=== PATIENT | male | born 1955 | race Caucasian/White ===

== ENCOUNTER 2018-01-19 12:44 | Inpatient (IN) | payer SELFPAY ==
[2018-01-19] MEDS ORDERED: DILTIAZEM HCL 5 MG/ML VIAL IV ONE ×3 (12:50→13:00)
[2018-01-19] MEDS ORDERED: DILTIAZEM HCL 125 MG in DEXTROSE 5 % IN WATER 100 ML IV PRN ×2 (13:00)
--- NOTE | 2018-01-19 13:05 | ERNOTE ---
Dyspnea - General Presenting Symptoms: shortness of breath, difficulty of breathing Time Seen by Provider: 01/19/18 12:46 Source: patient Exam Limitations: no limitations - Immun/Allergies/Home Medications Immunizations: IMMUNIZATION HX Immunizations Up to Date Yes History of Influenza Vaccine No Hx Pneumococcal Vaccination No Allergies/Adverse Reactions: Allergies No Known Allergies Allergy (Verified 01/19/18 12:57) Home Medications: HOME MEDICATIONS NK [No Home Medication] 09/11/16 [Last Taken Unknown] - History of Present Illness Narrative: Patient stated that starting last night he got profoundly short of breath even having difficulty walking across a room because of difficulty breathing. He rates it moderate to severe and the only thing that seems to help is lying very still. Severity: moderate, severe Treatment VENEREAL DISEASE CONTROL HEAD: none Initiating event: Reports: none Frequency of episodes: Reports: no prior episodes Modifying Factors - (Improves): Reports: nothing Modifying Factors (Worsens): Reports: activity Associated Symptoms-Dyspnea: Reports: denies symptoms Review of Systems - Review of Systems EYE: Present: no symptoms reported ENT: Present: no symptoms reported Respiratory: Present: See HPI Cardiology: Present: palpitations Gastrointestinal/Abdominal: Present: no symptoms reported Genitourinary: Present: no symptoms reported Musculoskeletal: Present: no symptoms reported Skin: Present: no symptoms reported Neurological: Present: no symptoms reported Endocrine: Present: no symptoms reported Hematologic/Lymphatic: Present: no symptoms reported Psych: Present: no symptoms reported - Patient's Past Medical History Patient History - Medical: No pertinent hx Patient History - Cardiac/Respiratory: No pertinent hx Patient History - Cancer: No Hx of Cancer Patient History - Surgical Procedures: No surgical history Patient History - Other: Other - Social History Living Situations: home Psych History: No pertinent hx Smoking Status: Former smoker - he quit one week ago Smoking Stop Date: 01/14/18 Alcohol Use: none Drug Use: none - Immunizations Immunizations Up to Date: Yes Hx Pneumococcal Vaccination: No History of Influenza Vaccine: No Physical Exam - Physical Exam General Appearance: Present: wd/wn, alert, moderate distress Head Exam: Present: normal inspection, no evidence of injury Eye Exam: Normal inspection: bilateral, PERRL: bilateral Ears, Nose, Throat: Present: normal ENT inspection, H, normal pharynx Neck: Present: normal inspection, nontender Respiratory: Present: no respiratory distress, no accessory muscle use, chest nontender, wheezing Cardiovascular/Chest: Present: no murmur, normal peripheral pulses, tachycardia , irregularly irregular Gastrointestinal/Abdominal: Present: normal bowel sounds, nontender, nondistended, soft, no organomegaly Rectal Exam: Present: deferred Back Exam: Present: normal inspection, normal range of motion Extremity Exam: Present: normal inspection, non-tender, no edema, normal range of motion Neurological Exam: Present: alert, oriented, normal mood/affect Skin Exam: Present: normal color, warm/dry Lymphatic Exam: Present: no adenopathy ED Progress - Results and Orders Patient's Lab Results:: I have reviewed the patient's lab results. - Vital Signs Patient's Vital Signs:: I have reviewed the patient's vital signs. Vital Signs: Vital Signs 01/19/18 12:50 Temperature 36.8 C Pulse Rate 156 H Respiratory 22 H Rate Blood Pressure 119/90 O2 Sat by Pulse 96 Oximetry - EKG EKG: atrial fibrillation - with RVR EKG read: Interp. by me - X-Ray X-Ray #1 X-Ray: chest Interpretation: Reviewed by me - Progress/Reassessment Chief Complaint: Dyspnea Plan - Plan Plan: Patient responded reasonably wall with both a Cardizem drip now running at 7.5 mg and I have started him on 120 mg of Cardizem CD. He was given 10 mg of Coumadin as well, however his baseline INR is 1.33. Patient is fairly adamant about needing to go home tomorrow which is the reason for starting him on Cardizem CD here in the emergency department and they can hopefully wean him off the Cardizem drip in the ICU. Departure Clinical Impression: Atrial fibrillation with RVR - Departure Disposition: Still a patient Condition: Fair Critical Care Note - Critical Care Note Total Time (mins): 35 Comments: Patient required both Cardizem IV as well as a Cardizem drip to control the atrial fibrillation with a rapid ventricular response. Patient was started on 120 mg of Cardizem CD as well and he was given 10 mg of Coumadin by mouth. Patient will get an echocardiogram was here in the hospital and he'll be under the care of Dr. Parikh.
[2018-01-19 13:18] LABS: Hematocrit 29.9 % (42.0-52.0); Hemoglobin 10.2 gm/dL (13.5-18.0); Mean Cell Volume 97.1 fl (78-100); Mean Corpuscular Hemoglobin 33.1 pg (27-31); Mean Corpuscular Hgb Conc 34.1 g/dl (32-36); Mean Platelet Volume 12.8 fl (6.0-9.5); Neutrophil # 3.1 K/mm3 (1.3-6.0); Neutrophil % 65.2 % (42-75.0); Platelet Count 66 K/mm3 (150-450); Red Blood Count 3.08 M/mm3 (4.7-6.0); White Blood Count 4.8 K/mm3 (4.0-10.5)
[2018-01-19 13:26] LABS: Prothrombin Time (Patient) 13.3 Seconds (9.0-11.0)
[2018-01-19 13:29] LABS: INR 1.33 INR (0.90-1.10); Partial Thrombolplastin Time 25.8 Seconds (24-32)
[2018-01-19 13:31] LABS: Albumin * 3.3 gm/dl (3.4-5.0); Anion Gap 13.8 mmol/L (6.8-13.8); Bilirubin, Total 0.8 mg/dL (0.0-1.1); Ca. Corrected For Albumin 9.1 mg/dL (8.4-10.2); Calcium * 8.9 mg/dL (7.9-10.9); Carbon Dioxide 25.8 mmol/L (24-32.6); Magnesium 1.7 mg/dL (1.2-2.8); Potassium 4.6 mmol/L (3.4-4.6); Total Protein 7.3 gm/dL (6.2-8.2)
[2018-01-19 13:37] LABS: Troponin I 0.029 ng/ml (0.00-0.10)
[2018-01-19] MEDS ORDERED: DILTIAZEM HCL 30 MG TABLET PO ONE (13:37)
[2018-01-19] MEDS ORDERED: DILTIAZEM HCL 120 MG CAP.SR.24H PO ONE (13:45)
[2018-01-19] MEDS ORDERED: WARFARIN SODIUM 10 MG TABLET PO SCH (13:45)
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
[2018-01-19 16:36] VITALS: BP 137/71
[2018-01-19] MEDS ORDERED: LORazepam 2 MG/ML DISP.SYRIN IV ONE (16:41)
[2018-01-19 17:09] LABS: Magnesium 1.7 mg/dL (1.2-2.8)
== END 2018-01-19 16:55 | disposition short-term general hospital (02) | DRG 310 ==
LOC: ER 12:44 → SCU 14:19
PROVIDERS: ADMIT Internal Medicine; ATTEND Internal Medicine
DX: I48.0 Paroxysmal atrial fibrillation (principal); D69.6 Thrombocytopenia, unspecified; F17.210 Nicotine dependence, cigarettes, uncomplicated; F10.10 Alcohol abuse, uncomplicated
CPT/HCPCS: 80053; 83735; 83880; 84100; 84484; 85025; 85610; 85730; 93005; 96365; 96375; 99291; G0481